=== PATIENT | female | born 1945 | race African-American/Black ===

== ENCOUNTER 2021-06-17 18:33 | Emergency (ER) | payer MEDICARE, OTHER ==
[2021-06-17 23:56] LABS: HCT 38.4 % (37.0-47.0); HGB 12.9 g/dl (12.5-16.0); MCH 29.3 pg (25.0-31.0); MCHC 33.6 g/dL (32.0-36.0); MCV 87.3 fL (78.0-100.0); MPV 11.1 fL (6.0-9.5); RBC 4.4 M/uL (4.20-5.40); RDW 13.2 % (11.5-14.0); WBC 5.8 K/uL (4.0-10.5)
[2021-06-18 00:12] LABS: BUN/CREAT RATIO (CALC) 30.3 RATIO; CREATININE 0.99 mg/dL (0.51-0.95); POTASSIUM 3.4 mmol/L (3.5-5.1)
== END 2021-06-18 05:15 | disposition home or self-care (01) ==
LOC: FER 18:33
PROVIDERS: Emergency Medicine
DX: H57.12 Ocular pain, left eye (principal); H54.7 Unspecified visual loss; H57.89 Other specified disorders of eye and adnexa; I10 Essential (primary) hypertension; Z98.42 Cataract extraction status, left eye
CPT/HCPCS: 36415; 70450; 70482; 80048; Q9967